=== PATIENT | female | born 1985 | race Caucasian/White ===

== ENCOUNTER 2018-03-21 15:45 | Emergency (ER) | payer MEDICAID, SELFPAY ==
[2018-03-21 15:46] VITALS: BP 122/78; PULSE 89; RESP 16; TEMP 36.6; O2SAT 100; BMI 28.3
--- NOTE | 2018-03-21 16:02 | EKG12_ITS ---
Test Reason : DIZZINESS Blood Pressure : / mmHG Vent. Rate : 077 BPM Atrial Rate : 077 BPM P-R Int : 120 ms QRS Dur : 086 ms QT Int : 396 ms P-R-T Axes : 013 039 063 degrees QTc Int : 448 ms Normal sinus rhythm Septal infarct , age undetermined Abnormal ECG Confirmed by HAYDE TAY, CRISTOPHER ([id number]), food expeditor FATOU BURNETT ([id number]) on 03/24/2018 4:22:14 PM Referred By: ALONA Confirmed By:CRISTOPHER LOCK MD
--- NOTE | 2018-03-21 16:05 | ED.DCSUM_ITS ---
- ER Visit Summary Date of Service: 03/21/18 Chief Complaint: Dizziness History of Present Illness: The patient is a 32 F Presents after syncopal episode at home. She felt lightheaded. She had all of her teeth surgically removed today. She has been unable to eat. She feels dizzy when she stands up. She has no chest pain, she did feel lightheaded before the syncopal episode. Physical Examination: Not appear in acute distress. Dry mucous membranes, she still has some very slight oozing from her gingiva status post extraction. No C-spine tenderness supple neck. Regular rate and rhythm without any obvious murmurs and she is tachycardic when she stands up. Clear lungs bilaterally speaking in full sentences without any obvious respiratory distress Abdomen soft and nontender no guarding or rebound Moves all extremities without any difficulty or pain. Skin does not show any obvious rashes or lesions, no trauma. Alert oriented ?3 with no gross focal deficit Emergency Department Course and Treatment: Patient's heart rate increased from 89 to 110 upon standing, and remain that way sitting back down. This is likely dehydration. Blood work is unremarkable , she felt better after IV fluids I will discharge her home in stable condition. She is encouraged to drink fluids even though she cannot eat quite yet. Disposition: Charge in stable condition Impression: Syncope This note was generated with [employer] dictation software. It may contain incorrect words, spelling, and punctuation that were not noted in review of the chart prior to signing ED Disposition - Plan for ED Patient: Disposition: Home or Assisted Living Chief Complaint: Dizziness Instructions: ED Hypotension Orthostatic Referrals: Care Physician,No Primary [Primary Care Provider] - 2 Days
[2018-03-21] MEDS: 0.9% Normal Saline 1,000 ML 1000 ML IV (16:38)
[2018-03-21 16:39] LABS: Absolute Lymphocyte Count 1.68 X10^3/ul (0.83-4.51); Absolute Neutrophil Count 8.7 X10^3/uL (2.0-7.7); Basophil# 0.02 X10^3/uL; Basophil% 0.2 % (0-1); Eosinophil# 0.12 X10^3/uL; Hematocrit 43.1 % (37-47); Hemoglobin 14.7 g/dl (12.0-15.0); Lymphocyte # 1.68 X10^3/ul (4.0); Lymphocyte % 14.6 % (19-41); Mean Corp Hgb Conc 34.1 g/gl (32-36); Mean Corpuscular Hgb 30.4 pg (27.0-32.0); Mean Platelet Vol. 10.1 fl (6.2-12.0); Monocyte# 0.92 X10^3/uL; Neutrophil # 8.71 X10^3/uL (2.7-7.7); Platelet Count 219 K/mm3 (150-450); RBC Distribution Width CV 12.7 % (11.6-14.6); RBC Distribution Width SD 40.5 fl (35.1-43.9); Red Blood Count 4.84 M/mm3 (4.2-5.4); White Blood Count 11.5 K/mm3 (4.4-11.0)
[2018-03-21 16:40] LABS: POSITIVE COUNT NO; POSITIVE DIFFERENTIAL NO; POSITIVE MORPHOLOGY NO
[2018-03-21 16:53] LABS: ALB/GLOB Ratio 1.1 RATIO (0.9-2.4); AST(SGOT) 17 U/L (15-37); Alanine Aminotransfer ALT/SGPT 16 U/L (13-56); Albumin, Serum 3.9 g/dL (3.2-5.0); Alkaline Phosphatase 52 U/L (45-117); Anion Gap 8 (5-15); BUN 10 mg/dL (7-18); BUN/Creat Ratio 11.6 RATIO (10-20); Calcium,Total 8.3 mg/dL (8.5-10.1); Chloride 107 mmol/L (98-107); Creatinine, Serum 0.86 mg/dL (0.55-1.02); EST Glomerular Filtration Rate 81 mL/min (>60); Est Glom Filt Rate - Afr Amer 99 mL/min (>60); Estimated Creatinine Clearance 79.12 ml/min; Globulin 3.6 g/dL (2.2-4.2); Glucose 82 mg/dL (74-106); Potassium 4.2 mmol/L (3.5-5.1); Protein, Total 7.5 g/dL (6.4-8.2); Sodium Level 141 mmol/L (136-145)
[2018-03-21 18:02] VITALS: BP 120/77; PULSE 87; RESP 16; O2SAT 98
== END 2018-03-21 18:27 | disposition home or self-care (01) ==
PROVIDERS: Emergency Provider Emergency Medicine
DX: R55 Syncope and collapse (principal); Z98.818 Other dental procedure status; Z87.891 Personal history of nicotine dependence
CPT/HCPCS: 80053; 85025; 93005; 96360; 99285; J7030; A4216